=== PATIENT | female | born 1955 | race Caucasian/White ===

== ENCOUNTER → 2016-09-28 | Outpatient (CLI) | payer MEDICARE, MEDICAID ==
[~2016-09-28] MED LIST: ASA CHILDREN'S81 MG PO; ASPIR 8181 MG PO; AUGMENTIN 500-1 EACH PO; BACTROBAN OINT.22 GM TP; BICARSIM80 MG PO; BUPROPION XL300 MG PO; CARAFATE DPS1 GM PO; CEFDINIR300 MG PO; CELEXA40 M1 PO; CELEXA40 MG PO; COUMADIN5 MG PO; DELTASONE DPS10 MG PO; DESYREL-DPS50 MG PO; DUONEB DPS3 ML IH; FLEXERIL DPS5 MG PO; GLUCAGON HCL1 MG IM; GLUTOSE 1537.5 GM PO; GUAIFEN-CODEIN473 ML PO; HUMALOG100 UNIT/1 SQ; HUMALOG100 UNIT/3 SQ; HYDROCODON-ACE1 EAC4 PO; IMODIUM DPS2 MG PO; LANTUS100 UNITS/ SQ; LASIX DPS20 MG PO; LASIX20 M1 PO; LEVEMIR FL100 UNIT/1 SQ; LEVEMIR100 UNIT/1 SQ; LIPITOR DPS40 MG PO; LIPITOR40 MG PO; LOPRESSOR I5 MG/5 ML IV; LOVENOX DP60 MG/0.6 SQ; LYRICA100 MG PO; LYRICA150 MG PO; LYRICA300 MG PO; MAALOX DPS30 ML PO; MYLICON DPS80 MG PO; NITROSTAT0.4 MG SL; NOVOLIN R100 UNIT/1 IV; NOVOLOG100 UNIT/2 SQ; OYSTER SHELL C500 MG PO; PRILOSEC DPS20 MG PO; PRILOSEC20 MG PO; PROTONIX40 MG PO; REGLAN DPS5 MG PO; REGLAN10 MG IV; RESTASIS1 EACH OU; SURFAK DPS240 MG PO; TEARS NATURAL D15 ML OU; TESSALON PERLE100 MG PO; TYLENOL DPS325 MG PO; WELLBUTRIN XL150 MG PO; WELLBUTRIN XL300 MG PO; XANAX DPS0.25 MG PO; ZEBETA5 MG PO; ZIAC 55 MG PO; ZOFRAN DPS4 MG/2 ML IV; [UNRECOGNIZED DRUG - OTHER] PO
== END | disposition home or self-care (01) ==
LOC: RAD.S 13:45
DX: I73.9 Peripheral vascular disease, unspecified (principal)

== ENCOUNTER 2016-10-04 17:21 | Inpatient (IN) | payer MEDICARE, MEDICAID ==
[~2016-10-04] VITALS: Ht 147.3 cm; Wt 59.7 kg
[~2016-10-04 17:21] MED LIST changes: -AUGMENTIN 500-1 EACH PO; -CARAFATE DPS1 GM PO; -CEFDINIR300 MG PO; -DELTASONE DPS10 MG PO; -DUONEB DPS3 ML IH; -GLUCAGON HCL1 MG IM; -GUAIFEN-CODEIN473 ML PO; -HYDROCODON-ACE1 EAC4 PO; -LOPRESSOR I5 MG/5 ML IV; -LOVENOX DP60 MG/0.6 SQ; -LYRICA150 MG PO; -MYLICON DPS80 MG PO; -NITROSTAT0.4 MG SL; -NOVOLIN R100 UNIT/1 IV; -OYSTER SHELL C500 MG PO; -REGLAN DPS5 MG PO; -REGLAN10 MG IV; -RESTASIS1 EACH OU; -TESSALON PERLE100 MG PO; -XANAX DPS0.25 MG PO; -ZOFRAN DPS4 MG/2 ML IV
--- NOTE | 2016-10-05 15:40 | ER ---
ADMIT: 10/04/2016 RM/LOC: 424 [facility] MR#: [id number] [address] [address] CURLY HAYLIE [place] [address] Emergency Room Report SEX: F AGE: 61 : 1955 DATE: 10/04/2016 ADDENDUM: This is a 61-year-old white female, who has tracheostomy from previous problems, coming in coughing and spasming. She does not have any humidified air at home. Her chest was negative. She has no fever at this time. Still continues to bother her. We did give her a racemic epi treatment. We also put her on humidified air. Still a little anxious with this. Also, this is making her a little nauseated. We gave her 4 of Zofran and then I had also had given her Xanax 0.25 sublingual. We are just going to watch her overnight. She has no setup at home that would help humidify her trach. This way we can watch her. I spoke with Dr. Phillips, who is covering for Dr. Bernard. They will observe her. We did check her blood sugar, it was like 247. She is a diabetic, but that does not seem to be the problem. CONDITION ON DISCHARGE: Good. John Saab MD/ hernestol JOB #: [id number] CC: Jeffy Bernard MD, Attending Physician Jeffy Bernard MD, Family Physician
--- NOTE | 2016-10-06 08:34 | HP ---
ADMIT: 10/05/2016 RM/LOC: 424 [facility] MR#: [id number] [address] [address] HAYLIE RAWLS Neymar [address] [place] [address] History and Physical SEX: F AGE: 61 : 1955 DATE OF SERVICE: CHIEF COMPLAINT: Cough, weakness, and nausea. HISTORY OF PRESENT ILLNESS: The patient is a pleasant 61-year-old female, very well known to me who had been in her usual state of health up until the last few days. Increasing cough. Shortness of breath. Fits of coughing that are severe. No known sick contacts. Lots of nausea. Decreased oral intake. Increased weakness. No chest pain. Has struggled with some right leg pain recently, found to have worsening peripheral vascular disease on ABIs recently. Otherwise, had been living at home. No severe hypoglycemic reactions recently, she states. No chest pain currently. Just feels very weak. Coughing a lot. No fevers per se. PAST MEDICAL HISTORY: 1. 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 2. Prior right tibial fracture. 3. Poorly controlled type 1 diabetes, on insulin. 4. Nonobstructive coronary artery disease. 5. Severe peripheral vascular disease, status post femoral-popliteal bypass. 6. History of SVT. 7. History of upper extremity DVT. 8. History of cervical neck fusion. 9. COPD. 10.Depression. 11.Hypertension. 12.Hyperlipidemia. 13.History of urinary retention. FAMILY HISTORY: Notable for pancreatic and colon cancer. SOCIAL HISTORY: Lives at home alone. Nonsmoker. . MEDICATIONS: Please see list for full details. She is on: 1. Trazodone. 2. Stool softener. 3. Calcium. 4. Omeprazole. 5. Lyrica. 6. Citalopram. 7. Bupropion. 8. Aspirin. 9. Lasix. 10.Levemir. 11.Humalog. 12.Bisoprolol. REVIEW OF SYSTEMS: As per HPI. Otherwise, completely reviewed and negative. ADMIT: 10/05/2016 RM/LOC: 424 [facility] MR#: [id number] [address] [address] HAYLIE RAWLS [address] [place] [address] History and Physical SEX: F AGE: 61 : 1955 PHYSICAL EXAMINATION: VITAL SIGNS: Temperature 98.6, pulse 91, respiratory rate 16, blood pressure 110/59, O2 saturation 90% on oxygen. GENERAL: She is alert and oriented x3. No acute distress. Appears much more tired than usual. HEENT: Normocephalic, atraumatic. Pupils equal, round, and reactive to light and accommodation. Extraocular muscles intact. Very dry mucous membranes. NECK: Trachea midline. No surrounding erythema. LUNGS: Clear to auscultation bilaterally with some end-expiratory stridorous type sounding. Upper airway sounding. Symmetric thoracic excursion. HEART: Regular rate and rhythm. No murmurs, rubs, or gallops. ABDOMEN: Soft, nondistended, and nontender. Bowel sounds present. EXTREMITIES: No cyanosis, clubbing, or edema. MUSCULOSKELETAL: 5/5 strength in all 4 extremities. NEUROLOGICAL: No focal deficits noted. Cranial nerves II through XII grossly intact. SKIN: No rashes noted. Dry. Poor skin turgor. LABORATORY DATA: Blood glucose 326 earlier this morning, 15 earlier on her BMP at 4 a.m. Creatinine 1.3, the baseline less than 1. Hemoglobin 14.4, potassium 3.9, procalcitonin 0.06. Chest x-ray reviewed. I do not see any acute infiltrates. EKG I reviewed. No acute findings, junctional rhythm, left bundle branch block. ASSESSMENT: 1. Tracheitis. 2. Peripheral vascular disease. 3. Acute kidney injury. 4. Coronary artery disease. 5. Diabetes type 1, poorly controlled on insulin. 6. Hypertension. PLAN: At this point in time, she had a tracheitis in the past, really struggled to get better in the past. We will keep her inpatient, give her low- dose steroid. Give her some humidified oxygen. Check respiratory viral panel. Check for influenza. Get her hydrated back up. Diabetes has been difficult to control and being on prednisone might make it more difficult. I think she definitely warrants inpatient given her comorbidities, fits of coughing, and overall acute kidney injury. We will try to get her better here. The patient is agreeable to plan. Jeffy Bernard MD/ dilan JOB #: [id number] CC: Jeffy Bernard, Attending Physician ADMIT: 10/05/2016 RM/LOC: 424 [facility] MR#: [id number] [address] [place] [address] [address] RAWLS [address] [address] History and Physical SEX: F AGE: 61 : 1955 Jeffy Bernard, Family Physician
[2016-10-08] MEDS ORDERED: DESYREL-DPS50 MG PO (11:36)
[2016-10-08] MEDS ORDERED: OYSTER SHELL C500 MG PO (11:36)
[2016-10-08] MEDS ORDERED: DELTASONE DPS10 MG PO (11:38)
[2016-10-08] MEDS ORDERED: PROTONIX40 MG PO (11:38)
[2016-10-08] MEDS ORDERED: ASA CHILDREN'S81 MG PO (11:39)
[2016-10-08] MEDS ORDERED: LASIX DPS20 MG PO (11:39)
[2016-10-08] MEDS ORDERED: CARAFATE DPS1 GM PO (11:42)
[2016-10-08] MEDS ORDERED: DUONEB DPS3 ML IH (11:42)
[2016-10-08] MEDS ORDERED: BACTROBAN OINT.22 GM TP (11:43)
[2016-10-08] MEDS ORDERED: TESSALON PERLE100 MG PO (11:43)
[2016-10-08] MEDS ORDERED: HYDROCODON-ACE1 EAC4 PO (11:44)
[2016-10-08] MEDS ORDERED: MYLICON DPS80 MG PO (11:44)
[2016-10-08] MEDS ORDERED: GUAIFEN-CODEIN473 ML PO (11:46)
[2016-10-13] MEDS ORDERED: RESTASIS1 EACH OU (11:51)
[2016-10-13] MEDS ORDERED: REGLAN DPS5 MG PO (11:51)
[2016-10-13] MEDS ORDERED: LYRICA150 MG PO (11:51)
[2016-10-13] MEDS ORDERED: XANAX DPS0.25 MG PO (11:55)
[2016-10-13] MEDS ORDERED: CEFDINIR300 MG PO (12:00)
--- NOTE | 2016-10-19 08:17 | DS ---
ADMIT: 10/05/2016 RM/LOC: 424 [facility] MR#: [id number] [address] [address] CURLYZAC [place] [address] General Discharge Summary SEX: F AGE: 61 : 1955 ADMISSION DATE: 10/05/2016 DISCHARGE DATE: 10/07/2016 ATTENDING AT TIME OF DISCHARGE: Jeffy Bernard MD CONSULTATIONS: None. PROCEDURES: None. FINAL DIAGNOSES: 1. Tracheitis. 2. Peripheral vascular disease. 3. Type 1 diabetes with erratic glucose control. 4. Hypertension. 5. Coronary artery disease. 6. Acute kidney injury. 7. Depression. REASON FOR ADMISSION: The patient is a 61-year-old female, who presented to the emergency room with increasing cough, shortness of breath, did not feel well, wheezing, copious sputum production. Admitted for further stabilization. HOSPITAL COURSE: The patient was admitted. She required humidified air via trach. Slowly and steadily improved. Steroids. Still had large amount of copious secretions and cough, severe. Ultimately improved to the point she felt like she could go home with home health care. She was hydrated, apparent acute kidney injury resolved. Did not have a fever. Did not require antibiotics. Blood sugars were monitored while being on steroids under reasonable control. DISCHARGE INSTRUCTIONS: She will be discharged to home. Home health care. Blow-by humidified oxygen via trach. Suction set up at home. She will see me back in clinic in short order. For medications please see discharge MAR, which I fully reviewed. Jeffy Bernard MD/ turner JOB #: [id number] CC: Jeffy Bernard MD, Attending Physician Jeffy Bernard MD, Family Physician
[2016-12-08] MEDS ORDERED: GLUCAGON HCL1 MG IM (15:21)
[2016-12-08] MEDS ORDERED: DESYREL-DPS50 MG PO (15:21)
[2017-02-20] MEDS ORDERED: XANAX DPS0.25 MG PO (09:25)
[2017-02-20] MEDS ORDERED: LASIX DPS20 MG PO (09:26)
[2017-02-20] MEDS ORDERED: PRILOSEC DPS20 MG PO (09:26)
[2017-02-20] MEDS ORDERED: AUGMENTIN 500-1 EACH PO (09:27)
[2017-04-06] MEDS ORDERED: LOVENOX DP60 MG/0.6 SQ (13:28)
[2017-04-06] MEDS ORDERED: NOVOLIN R100 UNIT/1 IV (13:34)
[2017-04-06] MEDS ORDERED: LOPRESSOR I5 MG/5 ML IV (13:34)
[2017-04-06] MEDS ORDERED: TYLENOL DPS325 MG PO (13:35)
[2017-04-06] MEDS ORDERED: GLUTOSE 1537.5 GM PO (13:35)
[2017-04-06] MEDS ORDERED: GLUCAGON HCL1 MG IM (13:36)
[2017-04-06] MEDS ORDERED: NITROSTAT0.4 MG SL (14:18)
[2017-04-06] MEDS ORDERED: ZOFRAN DPS4 MG/2 ML IV (14:20)
[2017-04-06] MEDS ORDERED: REGLAN10 MG IV (14:20)
== END 2016-10-07 14:15 | disposition home health service (06) | DRG 206 ==
LOC: ER 17:21 → 4PCU 19:00
PROVIDERS: ADMIT Internal Medicine
DX: J95.02 Infection of tracheostomy stoma (principal); N17.9 Acute kidney failure, unspecified; E10.51 Type 1 diabetes mellitus with diabetic peripheral angiopathy without gangrene; E10.65 Type 1 diabetes mellitus with hyperglycemia; J04.10 Acute tracheitis without obstruction; I25.10 Atherosclerotic heart disease of native coronary artery without angina pectoris; J44.9 Chronic obstructive pulmonary disease, unspecified; F32.9 Major depressive disorder, single episode, unspecified; I10 Essential (primary) hypertension; E78.5 Hyperlipidemia, unspecified; Z79.82 Long term (current) use of aspirin; Z86.718 Personal history of other venous thrombosis and embolism; Z98.1 Arthrodesis status

== ENCOUNTER 2016-10-08 11:39 | Inpatient (IN) | payer MEDICARE, MEDICAID ==
[~2016-10-08] VITALS: Ht 147.3 cm; Wt 58.0 kg
[~2016-10-08 11:39] MED LIST changes: +DELTASONE DPS10 MG PO; +OYSTER SHELL C500 MG PO
[2016-10-08] MEDS ORDERED: DUONEB DPS3 ML IH (11:42)
[2016-10-08] MEDS ORDERED: CARAFATE DPS1 GM PO (11:42)
[2016-10-08] MEDS ORDERED: TESSALON PERLE100 MG PO (11:43)
[2016-10-08] MEDS ORDERED: BACTROBAN OINT.22 GM TP (11:43)
[2016-10-08] MEDS ORDERED: MYLICON DPS80 MG PO (11:44)
[2016-10-08] MEDS ORDERED: HYDROCODON-ACE1 EAC4 PO (11:44)
[2016-10-08] MEDS ORDERED: GUAIFEN-CODEIN473 ML PO (11:46)
--- NOTE | 2016-10-09 10:47 | HP ---
ADMIT: 10/08/2016 RM/LOC: 425 [facility] MR#: [id number] [address] [address] HAYLIE RAWLS [place], [place] [address] History and Physical SEX: F AGE: 61 : 1955 DATE OF SERVICE: CHIEF COMPLAINT: Cough and shortness of breath. HISTORY OF PRESENT ILLNESS: Ms. Rawls is a very pleasant, 61-year-old female. She was actually just discharged from the hospital yesterday. She had been admitted on 10/05 with diagnosis of tracheitis. She had been given some IV steroids as well as antibiotics. The patient reports that she had not made a lot of improvement but the decision was for her to be discharged home. She went home and her son picked her up and reports that she did not look very well when he picked her up. Notes that after being home today, the home health nurse came to see her and was really concerned that she was unable to care for herself. Notes that she was unable to suction herself, did not have a home suctioning unit; also reports that she did not have humidity, therefore, they felt that the patient was too weak to stay at home and it was unsafe. They had attempted skilled placement through the ER but were unsuccessful. The patient currently reports that she is short of breath. She is having mucus which is unusual for her, reports that she has not had an appetite, she has been somewhat nauseated. PAST MEDICAL HISTORY: Significant for: 1. Tracheostomy-dependent secondary to prior respiratory insufficiency. 2. History of right tibial fracture. 3. Poorly-controlled diabetes mellitus type 1, on insulin. 4. Nonobstructive coronary artery disease. 5. Severe peripheral vascular disease, status post femoral-popliteal bypass. 6. History of SVT. 7. History of upper extremity DVT. 8. History of cervical neck fusion. 9. COPD. 10.Depression. 11.Hypertension. 12.Hyperlipidemia. 13.History of urinary retention. MEDICATIONS: Currently are: 1. Calcium 600 mg p.o. at bedtime. 2. Omeprazole 20 mg p.o. b.i.d. 3. Trazodone 50 mg p.o. at bedtime. 4. Citalopram 40 mg p.o. daily. 5. Bupropion 300 mg p.o. daily. 6. Prednisone taper on 10 mg p.o. daily. 7. Aspirin 81 mg p.o. daily. 8. Lasix 20 mg p.o. daily. 9. Levemir 10 units subcutaneously at bedtime. 10.Humalog 6 units with meals and 1 unit for every 50 above 150. 11.Lipitor 40 mg p.o. daily. 12.DuoNeb q.i.d. 13.Sucralfate 1 g q.i.d. ADMIT: 10/08/2016 RM/LOC: 425 [facility] MR#: [id number] [address] [place] [address] [place] [address] History and Physical SEX: F AGE: 61 : 1955 14.Bisoprolol 5 mg p.o. daily. 15.Tessalon Perles 100 mg p.o. t.i.d. 16.Hydrocodone. 17.Simethicone. 18.Robitussin with codeine. 19.Tylenol. 20.Lyrica 300 mg p.o. b.i.d. 21.Restasis. 22.Alprazolam as needed as well as an antibiotics. FAMILY HISTORY: Notable for pancreatic and colon cancer. SOCIAL HISTORY: She lives at home. Does not smoke, is a nonsmoker. She is , has a son who is very involved in her care. REVIEW OF SYSTEMS: Obtained, was otherwise essentially negative. PHYSICAL EXAMINATION: GENERAL: She is alert and oriented. She is in no apparent distress. Her trachea is clean, dry, and intact. HEENT: Her pupils are round and reactive. Oropharynx has dry mucous membranes. HEART: Normal rate with a regular rhythm. LUNGS: Diminished breath sounds bilaterally with some bronchial upper airway sounds. ABDOMEN: Soft. Bowel sounds are present. EXTREMITIES: No lower extremity edema. She appears to be pale. She also has diminished distal pulses. ASSESSMENT AND PLAN: 1. Cough with increased mucus production and dyspnea, at this time, ADMIT: 10/08/2016 RM/LOC: 425 [facility] MR#: [id number] [address] [place] [id number] [place] [address] History and Physical SEX: F AGE: 61 : 1955 certainly warrants admission. I feel that she needs to be on IV antibiotics. Continue her p.o. steroids. We will not give her IV steroids with the concern of her blood sugars. We will plan to get a sputum Gram-stain and culture. She had a recent respiratory panel. 2. Weakness. We will ask PT/OT to see the patient. We will plan to look for skilled placement. 3. Hypertension. 4. Hyperlipidemia. 5. History of supraventricular tachycardia. 6. History of peripheral vascular disease. 7. Diabetes mellitus type 1. Overall, I spent 40 minutes in the admission and evaluation of this patient. Cynthia Griffin MD/ dilan JOB #: [id number] CC: Jeffy Bernard, Attending Physician Jeffy Bernard, Family Physician
--- NOTE | 2016-10-13 10:00 | ER ---
ADMIT: 10/08/2016 RM/LOC: ER [facility] MR#: [id number] [address] [address] HAYLIE RAWLS Neymar [address] [place] [address] Emergency Room Report SEX: F AGE: 61 : 1955 DATE: 10/08/2016 ADDENDUM: A 61-year-old white female coming in with kind of recurrent tracheitis who was just recently admitted and then discharged home with Home Health Care. Home Health Care says she is unable to take care of herself and was sent here. The patient wanted to be admitted, but she did not meet any 3- day diagnosis qualification to make fpc. Certification Technician were called. I spoke with Dr. Griffin. At this time, the patient evidently lives by herself, cannot manage her trach or her medications, oxygen at home. She will be admitted as observation here. CONDITION ON DISCHARGE: Fair. John Saab MD/ dilan JOB #: [id number] CC: John Saab MD, Attending Physician UNKNOWN, Family Physician
[2016-10-13] MEDS ORDERED: REGLAN DPS5 MG PO (11:51)
[2016-10-13] MEDS ORDERED: RESTASIS1 EACH OU (11:51)
[2016-10-13] MEDS ORDERED: LYRICA150 MG PO (11:51)
[2016-10-13] MEDS ORDERED: XANAX DPS0.25 MG PO (11:55)
[2016-10-13] MEDS ORDERED: CEFDINIR300 MG PO (12:00)
--- NOTE | 2016-10-20 11:58 | DS ---
ADMIT: 10/08/2016 RM/LOC: 425 [facility] MR#: [id number] [address] [address] HAYLIE RAWLS Neymar [place], [place] [id number] Discharge Summary SEX: F AGE: 61 : 1955 ADMISSION DATE: 10/08/2016 DISCHARGE DATE: 10/12/2016 DISCHARGE DIAGNOSES: 1. Dyspnea. 2. Weakness. 3. Tracheitis. 4. Labile diabetes mellitus. 5. History of nonobstructive coronary artery disease. 6. History of peripheral vascular disease. 7. History of SVT (supraventricular tachycardia). 8. History of upper extremity DVT (deep venous thrombosis). 9. History of cervical neck fusion. 10.Hypertension. 11.Hyperlipidemia. 12.Depression. 13.COPD (chronic obstructive pulmonary disease). HOSPITAL COURSE: The patient was admitted from home as she was too weak to care for herself at home. We had Social Work involved. I did feel that she warranted IV antibiotics for her tracheitis. She had a cough productive of phlegm. She was placed on IV antibiotics. She was also on p.o. steroids. Her blood sugars were watched closely. Otherwise, she did pretty well during her hospital stay. She was having some low blood sugars but otherwise her insulin was tapered back. The plan was for her to be discharged to [facility] for further skilled evaluation and treatment. DISCHARGE MEDICATIONS: 1. Calcium 500 mg p.o. at bedtime. 2. Omeprazole 20 mg p.o. b.i.d. 3. Trazodone 50 mg p.o. at bedtime. 4. Celexa 40 mg p.o. daily. 5. Bupropion 300 mg p.o. daily. 6. Prednisone 10 mg p.o. daily. 7. Aspirin 81 mg p.o. daily. 8. Lasix 20 mg p.o. daily. 9. Levemir 8 units subcu HS with Humalog 4 units AC and a very low-dose sliding scale Humalog. 10.Atorvastatin 40 mg p.o. at bedtime. 11.DuoNebs q.i.d. ADMIT: 10/08/2016 RM/LOC: 425 [facility] MR#: [id number] [id number] [facility] [address] [place], [place] [address] HAYLIE RAWLS [address] [place] [address] Discharge Summary SEX: F AGE: 61 : 1955 12.Carafate 1 g q.a.c. 13.Bisoprolol 5 mg p.o. daily. 14.Tessalon 100 mg p.o. t.i.d. x10 days then p.r.n. 15.Pain pill p.r.n. 16.Simethicone, Robitussin p.r.n. 17.Tylenol p.r.n. Lyrica 300 mg p.o. b.i.d. 18.Restasis b.i.d. 19.Xanax daily p.r.n. 20.Cefdinir 300 mg p.o. b.i.d. x10 days. She will follow up with Dr. Bernard in 10 days, have Accu-Cheks AC and HS. O2 to keep sats greater than 90, has heated humidity through her trach. PT/OT, Speech Therapy to evaluate and treat. Cynthia Griffin MD/ ashtyn JOB #: [id number] CC: Jeffy Bernard MD, Attending Physician Jeffy Bernard MD, Family Physician
[2016-12-08] MEDS ORDERED: DESYREL-DPS50 MG PO (15:21)
[2016-12-08] MEDS ORDERED: GLUCAGON HCL1 MG IM (15:21)
[2017-02-20] MEDS ORDERED: XANAX DPS0.25 MG PO (09:25)
[2017-02-20] MEDS ORDERED: LASIX DPS20 MG PO (09:26)
[2017-02-20] MEDS ORDERED: PRILOSEC DPS20 MG PO (09:26)
[2017-02-20] MEDS ORDERED: AUGMENTIN 500-1 EACH PO (09:27)
[2017-04-06] MEDS ORDERED: LOVENOX DP60 MG/0.6 SQ (13:28)
[2017-04-06] MEDS ORDERED: LOPRESSOR I5 MG/5 ML IV (13:34)
[2017-04-06] MEDS ORDERED: NOVOLIN R100 UNIT/1 IV (13:34)
[2017-04-06] MEDS ORDERED: TYLENOL DPS325 MG PO (13:35)
[2017-04-06] MEDS ORDERED: GLUTOSE 1537.5 GM PO (13:35)
[2017-04-06] MEDS ORDERED: GLUCAGON HCL1 MG IM (13:36)
[2017-04-06] MEDS ORDERED: NITROSTAT0.4 MG SL (14:18)
[2017-04-06] MEDS ORDERED: ZOFRAN DPS4 MG/2 ML IV (14:20)
[2017-04-06] MEDS ORDERED: REGLAN10 MG IV (14:20)
== END 2016-10-12 12:03 | DRG 206 ==
LOC: ER 11:39 → 4PCU 14:25
PROVIDERS: ADMIT Internal Medicine
DX: J95.02 Infection of tracheostomy stoma (principal); N17.9 Acute kidney failure, unspecified; E10.51 Type 1 diabetes mellitus with diabetic peripheral angiopathy without gangrene; E10.65 Type 1 diabetes mellitus with hyperglycemia; J04.10 Acute tracheitis without obstruction; I25.10 Atherosclerotic heart disease of native coronary artery without angina pectoris; E87.6 Hypokalemia; J44.9 Chronic obstructive pulmonary disease, unspecified; F32.9 Major depressive disorder, single episode, unspecified; I10 Essential (primary) hypertension; E78.5 Hyperlipidemia, unspecified; Z79.82 Long term (current) use of aspirin; Z79.52 Long term (current) use of systemic steroids; Z86.718 Personal history of other venous thrombosis and embolism; Z98.1 Arthrodesis status

== ENCOUNTER 2016-11-06 14:59 | Inpatient (IN) | payer MEDICARE, MEDICAID ==
[~2016-11-06] VITALS: Ht 147.3 cm; Wt 56.5 kg
[~2016-11-06 14:59] MED LIST changes: +CARAFATE DPS1 GM PO; +CEFDINIR300 MG PO; +DUONEB DPS3 ML IH; +GUAIFEN-CODEIN473 ML PO; +HYDROCODON-ACE1 EAC4 PO; +LYRICA150 MG PO; +MYLICON DPS80 MG PO; +REGLAN DPS5 MG PO; +RESTASIS1 EACH OU; +TESSALON PERLE100 MG PO; +XANAX DPS0.25 MG PO
--- NOTE | 2016-11-10 08:28 | HP ---
ADMIT: 11/06/2016 RM/LOC: 512 [facility] MR#: [id number] [address] [address] HAYLIE JACKMAN [address] [place] [id number] History and Physical SEX: F AGE: 61 : 1955 DATE OF SERVICE: CHIEF COMPLAINT: Decreased LOC. HISTORY OF PRESENT ILLNESS: Ms. Jackman is a 61-year-old female, who has a past medical history significant for history of poorly controlled diabetes with recurrent hospitalizations for poorly controlled diabetes, COPD, depression, history of tracheostomy secondary to prior respiratory insufficiency, and nonobstructive coronary artery disease, who apparently fell on 11/03 and suffered a right humerus fracture. She apparently then was given some pain pills from the ER and sent home. She was brought in today by her son, who reports that she was having a decreased level of consciousness. Son is not currently available, and the patient is in the room. She wakes up and talks to me, but she falls right back asleep and is really a poor historian. Otherwise, it sounded like she was having some high blood sugars at home and maybe was not taking her medications quite as directed. PAST MEDICAL HISTORY: Significant for: 1. History of tracheostomy dependency secondary to prior respiratory insufficiency. 2. History of right tibial fracture. 3. Recent right proximal humerus fracture. 4. Poorly-controlled diabetes mellitus type 1. 5. Nonobstructive coronary artery disease. 6. Severe peripheral vascular disease status post femoral-popliteal bypass. 7. History of SVT. 8. History of upper extremity DVT. 9. History of cervical neck fusion. 10.COPD. 11.Depression. 12.Hypertension. 13.Hyperlipidemia. 14.History of urinary retention. MEDICATIONS: Her medications currently are: 1. Omeprazole 20 mg p.o. b.i.d. 2. Simethicone 80 mg p.o. q.4 hours p.r.n. 3. Carafate 1 g p.o. four times daily before meals. 4. Celexa 40 mg p.o. daily. 5. Bupropion 300 mg p.o. daily. 6. Lasix 20 mg p.o. daily. 7. Atorvastatin 40 mg p.o. daily. 8. Trazodone 50 mg p.o. at bedtime. 9. Bisoprolol 5 mg p.o. daily. 10.Lyrica 300 mg p.o. b.i.d. 11.Xanax 0.25 p.o. daily p.r.n. 12.Aspirin 81 mg p.o. daily. 13.Calcium 500 mg p.o. at bedtime. 14.Docusate sodium. ADMIT: 11/06/2016 RM/LOC: 512 [facility] MR#: [id number] [address] [address] [place] [address] History and Physical SEX: F AGE: 61 : 1955 15.Grant p.r.n. 16.Oxycodone p.r.n. 17.DuoNeb 4 times daily. 18.Restasis. 19.Levemir 8 units at bedtime. 20.Humalog 4 units before meals. FAMILY HISTORY: Notable for pancreatic and colon cancer. SOCIAL HISTORY: She lives at home. Does not smoke. She is . Her son who is involved in her care. REVIEW OF SYSTEMS: Otherwise obtained, was essentially negative. PHYSICAL EXAMINATION: GENERAL: She is sleepy, but she does wake up. HEENT: Pupils are round and reactive. She has ecchymoses under her left eye. Oropharynx has dry mucous membranes. NECK: Supple. She does have a tracheostomy. HEART: Normal rate with a regular rhythm. LUNGS: Have some coarse upper airway sounds. ABDOMEN: Soft. EXTREMITIES: Have no evidence of edema. Her right upper extremity is bruised, swollen, and in a splint. SKIN: Warm and dry. NEUROLOGICAL: She moves her upper and lower extremities. ASSESSMENT AND PLAN: 1. Decreased level of consciousness. Suspect this is secondary to her pain medications at this time. We will go ahead and just monitor. 2. Hyperglycemia. We will treat. 3. Acute renal failure. Suspect she has just not been taking much p.o. with the pain pills. We will go ahead and increase her IV fluids. 4. Humerus fracture. We will control her pain. 5. We will plan to discuss having PT/OT see her in the morning potentially having Social Work come and talk to her about placement otherwise. 6. Coronary artery disease. 7. Peripheral vascular disease. 8. Other chronic health problems. We will continue her home medications. Otherwise, I spent over 40 minutes in the admission and evaluation of this patient. Cynthia Griffin MD/ dilan JOB #: [id number] CC: Michael Franco, Attending Physician ADMIT: 11/06/2016 RM/LOC: 512 [facility] MR#: [id number] [facility] [address] [address] [place] [address] History and Physical SEX: F AGE: 61 : 1955 Jeffy Bernard, Family Physician
--- NOTE | 2016-11-10 14:03 | CO ---
ADMIT: 11/06/2016 RM/LOC: 512 [facility] MR#: [id number] [address] [address] [place] [address] Consultation SEX: F AGE: 61 : 1955 DATE OF CONSULTATION: 11/07/2016 ATTENDING PHYSICIAN: Michael Franco CONSULTING PHYSICIAN: Stoney Orourke MD SUBJECTIVE: The patient is a 61-year-old white female, who has been admitted to the hospital today for loss of consciousness. She has a history of multiple medical problems. Apparently, on November 03, she took a fall, sustained an upper extremity fractures, was placed a shoulder immobilizer in the ER, was going to, I believe, follow up with Orthopedics. I was asked to take a look at her during this admission. PHYSICAL EXAMINATION: Shows the patient has some ecchymosis in her shoulder and axillary area, tender to palpation. LABORATORY AND X-RAY DATA: I reviewed the x-rays from November 03, which show a minimally displaced proximal humerus fracture. ASSESSMENT AND PLAN: Minimally displaced proximal humerus fracture. At this point in time, the best thing to do is treat this nonoperatively. Given her multiple medical problems, have her stay in the immobilizer and follow her up in a week for repeat x-rays on outpatient basis. Stoney Orourke MD/ dilan JOB #: [id number] CC: Michael Franco, Attending Physician Jeffy Bernard, Family Physician
--- NOTE | 2016-11-13 11:01 | ER ---
ADMIT: 11/06/2016 RM/LOC: 512 [facility] MR#: [id number] [address] [address] CURLYHAYLIE RAE [address] [place] [address] Emergency Room Report SEX: F AGE: 61 : 1955 DATE: 11/06/2016 ADDENDUM: A 61-year-old white female, is brittle diabetic, coming in with elevated blood sugar, spilling of ketones. She is not septic. She is spilling glucose through in her urine. She did have a bump of her troponin 0.62, but her EKG looked okay. She also recently had a fracture of her humerus, has been falling more. The pain medication may be making her a little bit unstable on her feet. Either which way, we are going to admit her. I spoke with Dr. Griffin. CONDITION ON DISCHARGE: Serious, but stable. John Saab MD/ hernestol JOB #: [id number] CC: Michael Franco MD, Attending Physician Jeffy Bernard MD, Family Physician
--- NOTE | 2016-11-14 23:33 | DS ---
ADMIT: 11/07/2016 RM/LOC: 512 [facility] MR#: [id number] [address] [address] CURLYZAC SanchezTER Neymar [address] [place] [address] Discharge Summary SEX: F AGE: 61 : 1955 ADMISSION DATE: 11/07/2016 DISCHARGE DATE: 11/09/2016 CONSULTATIONS: Orthopedic Surgery. FINAL DIAGNOSES: 1. Fall with humerus fracture. 2. Decreased level of consciousness. 3. Poorly controlled type 1 diabetes. 4. Acute renal failure. 5. Coronary artery disease. 6. Peripheral vascular disease. 7. Tracheostomy dependence. REASON FOR ADMISSION: The patient is a chronically ill woman who presented to the emergency room with decreased level of consciousness. Recent fracture of her humerus. HOSPITAL COURSE: The patient was admitted. She had acute kidney injury. Rehydrated. This improved. Her blood sugars were closely monitored. These were improved as well. She was seen by Orthopedic Surgery regarding her humerus fracture. She was a nonoperative candidate. Conservative care. She was seen by Therapy. Ultimately, plans were made for nursing home placement. DISCHARGE INSTRUCTIONS: Please see discharge MAR, which I fully reviewed. She will see me back in clinic in a week or two. Have followup with Orthopedic surgery as planned. Jeffy Bernard MD/ ashtyn JOB #: [id number] CC: Michael Franco MD, Attending Physician Jeffy Bernard MD, Family Physician
[2016-12-08] MEDS ORDERED: DESYREL-DPS50 MG PO (15:21)
[2016-12-08] MEDS ORDERED: GLUCAGON HCL1 MG IM (15:21)
[2017-02-20] MEDS ORDERED: XANAX DPS0.25 MG PO (09:25)
[2017-02-20] MEDS ORDERED: LASIX DPS20 MG PO (09:26)
[2017-02-20] MEDS ORDERED: PRILOSEC DPS20 MG PO (09:26)
[2017-02-20] MEDS ORDERED: AUGMENTIN 500-1 EACH PO (09:27)
[2017-04-06] MEDS ORDERED: LOVENOX DP60 MG/0.6 SQ (13:28)
[2017-04-06] MEDS ORDERED: LOPRESSOR I5 MG/5 ML IV (13:34)
[2017-04-06] MEDS ORDERED: NOVOLIN R100 UNIT/1 IV (13:34)
[2017-04-06] MEDS ORDERED: GLUTOSE 1537.5 GM PO (13:35)
[2017-04-06] MEDS ORDERED: TYLENOL DPS325 MG PO (13:35)
[2017-04-06] MEDS ORDERED: GLUCAGON HCL1 MG IM (13:36)
[2017-04-06] MEDS ORDERED: NITROSTAT0.4 MG SL (14:18)
[2017-04-06] MEDS ORDERED: ZOFRAN DPS4 MG/2 ML IV (14:20)
[2017-04-06] MEDS ORDERED: REGLAN10 MG IV (14:20)
== END 2016-11-09 12:20 | DRG 683 ==
LOC: ER 14:59 → 5MS 17:21
PROVIDERS: ADMIT Internal Medicine
DX: N17.9 Acute kidney failure, unspecified (principal); S42.201A Unspecified fracture of upper end of right humerus, initial encounter for closed fracture; E10.51 Type 1 diabetes mellitus with diabetic peripheral angiopathy without gangrene; Z93.0 Tracheostomy status; E10.65 Type 1 diabetes mellitus with hyperglycemia; W18.30XA Fall on same level, unspecified, initial encounter; R40.0 Somnolence; T40.605A Adverse effect of unspecified narcotics, initial encounter; J44.9 Chronic obstructive pulmonary disease, unspecified; F32.9 Major depressive disorder, single episode, unspecified; I25.10 Atherosclerotic heart disease of native coronary artery without angina pectoris; E78.5 Hyperlipidemia, unspecified; I10 Essential (primary) hypertension; Z86.718 Personal history of other venous thrombosis and embolism; Z98.1 Arthrodesis status; Z79.82 Long term (current) use of aspirin

== ENCOUNTER 2016-12-05 03:10 | Inpatient (IN) | payer MEDICARE, MEDICAID ==
[~2016-12-05] VITALS: Ht 147.3 cm; Wt 58.0 kg
--- NOTE | ~2016-12-05 | HP ---
ADMIT: 12/05/2016 RM/LOC: 405 [facility] MR#: [id number] [address] [address] [place] [address] History and Physical SEX: F AGE: 61 : 1955 DATE OF SERVICE: CHIEF COMPLAINT: Nausea, vomiting, weakness. HISTORY OF PRESENT ILLNESS: The patient is a very pleasant 61-year-old female, very well-known to me, who over the last 48 hours has just not been feeling well, some enteritis. The patient has been recuperating over at [facility] facility due to humerus fracture. She is a brittle type 1 diabetic. She reports over the last couple days they have held her insulin because of her nausea and vomiting and not eating well. The patient reports a very mild generalized abdominal pain. No fevers. No chills. No shortness of breath now. Some occasional cough, which is not new to her. Prior to this, had been having kind of erratic blood sugars over the last couple of weeks. PAST MEDICAL HISTORY: 1. Coronary artery disease. 2. Peripheral vascular disease, status post fem-pop bypass. 3. Poorly controlled type 1 diabetes, type 2 brittle. 4. Humerus fracture on the right. 5. Tibial fracture history. 6. 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 7. SVT history. 8. History of DVT. 9. Depression. 10.Hypertension. 11.Hyperlipidemia. 12.History of urinary retention. 13.COPD. MEDICATIONS: Please see list for full details. [facility] the [facility], it includes: 1. Lortab. 2. Lyrica. 3. NovoLog. 4. Protonix. 5. Restasis. 6. Trazodone. 7. Simethicone. 8. Wellbutrin. 9. Zebeta. FAMILY HISTORY: Significant for pancreatic and colon cancer. SOCIAL HISTORY: Previously had been living at home on her own. Now, currently at [facility] facility recuperating. Nonsmoking. . REVIEW OF SYSTEMS: As per HPI, otherwise, completely reviewed and negative. PHYSICAL EXAMINATION: VITAL SIGNS: Blood pressure 143/81, pulse 99, ADMIT: 12/05/2016 RM/LOC: 405 [facility] MR#: [id number] [address] [address] [place] [address] History and Physical SEX: F AGE: 61 : 1955 respiratory rate 20, O2 saturation 97% on room air, afebrile. GENERAL: She is alert and oriented x3, in no acute distress, very pleasant as always. HEENT: Normocephalic, atraumatic. Pupils are equal, round, and reactive to light and accommodation. Extraocular muscles intact. Dry mucous membranes. NECK: No lymphadenopathy. Tracheostomy at midline. LUNGS: Clear to auscultation bilaterally. No wheezes, rales, or rhonchi. HEART: Regular rate and rhythm. No murmurs, rubs, or gallops. ABDOMEN: Soft, nontender, nondistended. Bowel sounds present. EXTREMITIES: No cyanosis, clubbing, or edema. MUSCULOSKELETAL: 5/5 strength in all 4 extremities, repositions herself in bed reasonably well. LABORATORY AND X-RAY DATA: Her initial glucose is greater than 600. PH on ABG is 7.29, pCO2 is 28, PO2 is 99. Creatinine 1.2, BUN is 20, alk phos 142, hemoglobin 12.6, sodium 133, carbon dioxide 16, AST 18. Lipase is normal. ALT normal. Bilirubin normal. ASSESSMENT: 1. Diabetic ketoacidosis. 2. Brittle type 1 diabetes. 3. Enteritis. 4. Tracheostomy dependence. 5. Coronary artery disease. 6. Peripheral vascular disease. 7. Recent humerus fracture. PLAN: At this point in time, we will put her on the insulin drip, she is already started on a large IV fluid resuscitation, 2 L in the ER and will continue with IV fluid resuscitation. We will watch her labs closely. Next lab being in 2 hours. We will try to treat her nausea and keep her from vomiting due to her tracheostomy and concern for aspiration. Aspiration precautions. The patient is agreeable to plan. Jeffy Bernard MD/ dilan JOB #: [id number] CC: Jeffy Bernard, Attending Physician Jeffy Bernard, Family Physician
[2016-12-08] MEDS ORDERED: GLUCAGON HCL1 MG IM (15:21)
[2016-12-08] MEDS ORDERED: DESYREL-DPS50 MG PO (15:21)
--- NOTE | 2016-12-09 08:20 | ER ---
ADMIT: 12/05/2016 RM/LOC: ER [facility] MR#: [id number] [address] [address] HAYLIE RAWLS Neymar [address] [place] [id number] Emergency Room Report SEX: F AGE: 61 : 1955 DATE: 12/05/2016 CHIEF COMPLAINT: Nausea, vomiting, not taking her medications. HISTORY OF PRESENT ILLNESS: The patient is a 61-year-old female, who is currently living in a half-way, has a diagnosis of insulin-dependent diabetes and a trach from previous respiratory failure. She presents to the ER for a couple of days of nausea, began vomiting recently and has not been able to take her pills and apparently from my understanding, has not getting her insulin because she has not been eating in the last couple of days. The patient states she has some mild abdominal discomfort. Otherwise, is not having any pain other than some chronic pain in her right upper arm from a humeral stress fracture. She denies any shortness of breath. She is currently nauseous. Denies any change in bowel or bladder function other than she is urinating more frequently. REVIEW OF SYSTEMS: Ten-point review of systems is done and otherwise negative except as in HPI. PAST MEDICAL HISTORY: Significant for type 1 diabetes, for which she takes insulin; coronary artery disease; hypertension; peripheral vascular disease; DVT; COPD; SVT; high cholesterol; stress fracture, right humerus. PAST SURGICAL HISTORY: She has had a tracheostomy. MEDICATIONS: See nurse's note. ALLERGIES: SEE NURSE'S NOTE. SOCIAL HISTORY: The patient does not smoke, drink, or use drugs. PHYSICAL EXAMINATION: VITAL SIGNS: Blood pressure 150/69, pulse 98, respirations 18, temp 96.9, sats 97% on room air. HEENT: Head is atraumatic. Pupils are equal, round, reactive to light. The patient does have a trach in place, is moving air without difficulty. HEART: Regular rate and rhythm. LUNGS: Clear to auscultation. ABDOMEN: Soft, diffusely tender throughout. She does have active bowel sounds. She does have a right upper arm in a sling. She has good movement in 3 other extremities. Sensation is intact in all 4 extremities. SKIN: Warm and dry. She has no pedal edema. LABORATORY DATA: CBC is normal. Chemistries show sodium 133, potassium 4.3, carbon dioxide 16, glucose 646, creatinine 1.2. Lipase 53. Anion gap from lab is 26, calculated gap is 22, serum ketones are moderate. ABG shows a pH 7.29, pCO2 of 28, PO2 of 99. EMERGENCY DEPARTMENT COURSE: The patient presented. Had some difficulty getting history from her due to her trach and she is not able to verbalize and ADMIT: 12/05/2016 RM/LOC: [facility] MR#: [id number] [address] [place] [id number] HAYLIE RAWLS [address] [place] [address] Emergency Room Report SEX: F AGE: 61 : 1955 speak well. Did come to find out that she was likely not getting her insulin because she had not been eating much. She did not initially present like she would likely be a DKA, but blood sugar came back elevated at 646 and then added on the labs to determine if she was in DKA. Serum ketones were positive and she had an elevated anion gap. She received 2 L of normal saline while in the emergency department in addition to Zofran for nausea, followed by Reglan for some continued nausea. She was given 10 units of subcu insulin and I spoke to Dr. Griffin, who will be admitting the patient for DKA management. The patient is admitted in serious condition. DIAGNOSES: 1. Diabetic ketoacidosis. 2. Nausea and vomiting. Alessio Vogel MD/ dilan JOB #: [id number] CC: Alessio Vogel MD, Attending Physician
--- NOTE | 2016-12-10 12:00 | DS ---
ADMIT: 12/05/2016 RM/LOC: 405 [facility] MR#: [id number] [address] [address] [place] [address] Discharge Summary SEX: F AGE: 61 : 1955 ADMISSION DATE: 12/05/2016 DISCHARGE DATE: 12/07/2016 CONSULTATIONS: None. PROCEDURES: None. FINAL DIAGNOSES: 1. DKA (diabetic ketoacidosis). 2. Type 1 diabetes with erratic control. 3. Coronary artery disease. 4. Peripheral vascular disease. 5. Recent right humerus fracture. 6. History of DVT (deep venous thrombosis). 7. History of femoral-popliteal bypass. REASON FOR ADMISSION: The patient is a very pleasant 61-year-old female, who was residing over at longterm facility. Had had some vomiting. She reports her insulin had been held. Started to feel worse. Presented to the emergency room. Found to be in DKA. HOSPITAL COURSE: The patient was admitted. Placed on insulin drip. Large volume IV fluid resuscitation. Slowly and steadily she started to improve. Able to stop off insulin drip. Start her home regimen essentially. Tolerated diet well. She felt safe and stable for discharge back to [facility] where she is receiving rehab for her right humerus fracture. DISCHARGE INSTRUCTIONS: Please see discharge MAR, which I reviewed. She will see me within the next month as previously planned. They will fax over her glucose log at the end of the week for me to review it. Jeffy Bernard MD/ ashtyn JOB #: [id number] CC: Jeffy Bernard MD, Attending Physician Jeffy Bernard MD, Family Physician
[2017-02-20] MEDS ORDERED: XANAX DPS0.25 MG PO (09:25)
[2017-02-20] MEDS ORDERED: PRILOSEC DPS20 MG PO (09:26)
[2017-02-20] MEDS ORDERED: LASIX DPS20 MG PO (09:26)
[2017-02-20] MEDS ORDERED: AUGMENTIN 500-1 EACH PO (09:27)
[2017-04-06] MEDS ORDERED: LOVENOX DP60 MG/0.6 SQ (13:28)
[2017-04-06] MEDS ORDERED: NOVOLIN R100 UNIT/1 IV (13:34)
[2017-04-06] MEDS ORDERED: LOPRESSOR I5 MG/5 ML IV (13:34)
[2017-04-06] MEDS ORDERED: TYLENOL DPS325 MG PO (13:35)
[2017-04-06] MEDS ORDERED: GLUTOSE 1537.5 GM PO (13:35)
[2017-04-06] MEDS ORDERED: GLUCAGON HCL1 MG IM (13:36)
[2017-04-06] MEDS ORDERED: NITROSTAT0.4 MG SL (14:18)
[2017-04-06] MEDS ORDERED: REGLAN10 MG IV (14:20)
[2017-04-06] MEDS ORDERED: ZOFRAN DPS4 MG/2 ML IV (14:20)
== END 2016-12-07 12:53 | DRG 639 ==
LOC: ER 03:10 → 4PCU 06:22
PROVIDERS: ADMIT Internal Medicine
DX: E10.10 Type 1 diabetes mellitus with ketoacidosis without coma (principal); Z93.0 Tracheostomy status; E10.51 Type 1 diabetes mellitus with diabetic peripheral angiopathy without gangrene; S42.201D Unspecified fracture of upper end of right humerus, subsequent encounter for fracture with routine healing; W18.30XD Fall on same level, unspecified, subsequent encounter; I25.10 Atherosclerotic heart disease of native coronary artery without angina pectoris; K52.9 Noninfective gastroenteritis and colitis, unspecified; J44.9 Chronic obstructive pulmonary disease, unspecified; F32.9 Major depressive disorder, single episode, unspecified; I10 Essential (primary) hypertension; E78.5 Hyperlipidemia, unspecified; Z86.718 Personal history of other venous thrombosis and embolism

== ENCOUNTER → 2016-12-18 | Outpatient (CLI) | payer MEDICARE, MEDICAID ==
[~2016-12-18] MED LIST changes: +AUGMENTIN 500-1 EACH PO; +GLUCAGON HCL1 MG IM; +LOPRESSOR I5 MG/5 ML IV; +LOVENOX DP60 MG/0.6 SQ; +NITROSTAT0.4 MG SL; +NOVOLIN R100 UNIT/1 IV; +REGLAN10 MG IV; +ZOFRAN DPS4 MG/2 ML IV
== END | disposition home or self-care (01) ==
LOC: RAD.S 16:00
DX: S42.201G Unspecified fracture of upper end of right humerus, subsequent encounter for fracture with delayed healing (principal); S42.211G Unspecified displaced fracture of surgical neck of right humerus, subsequent encounter for fracture with delayed healing

== ENCOUNTER 2016-12-28 17:42 | Emergency (ER) | payer MEDICARE, MEDICAID ==
[~2016-12-28 17:42] MED LIST changes: -AUGMENTIN 500-1 EACH PO; -LOPRESSOR I5 MG/5 ML IV; -LOVENOX DP60 MG/0.6 SQ; -NITROSTAT0.4 MG SL; -NOVOLIN R100 UNIT/1 IV; -REGLAN10 MG IV; -ZOFRAN DPS4 MG/2 ML IV
--- NOTE | 2016-12-29 08:16 | ER ---
ADMIT: 12/28/2016 RM/LOC: ER [facility] MR#: [id number] [address] [address] [place] [address] Emergency Room Report SEX: F AGE: 61 : 1955 DATE: 12/28/2016 ADDENDUM: A 61-year-old white female coming in by ambulance with insulin reaction. I think she has had problems with her diabetes before. However, she responded to the insulin out in the field we fed her. She screens positive on the sepsis screen because of her tachycardia. We will go ahead and run the initial. If this is all negative, she will go home. I expect this to all be negative. Any other changes will be dictated and then she will be discharged after labs. John Saab MD/ hernestol JOB #: [id number] CC: John Saab MD, Attending Physician Jeffy Bernard MD, Family Physician
[2017-02-20] MEDS ORDERED: XANAX DPS0.25 MG PO (09:25)
[2017-02-20] MEDS ORDERED: LASIX DPS20 MG PO (09:26)
[2017-02-20] MEDS ORDERED: PRILOSEC DPS20 MG PO (09:26)
[2017-02-20] MEDS ORDERED: AUGMENTIN 500-1 EACH PO (09:27)
[2017-04-06] MEDS ORDERED: LOVENOX DP60 MG/0.6 SQ (13:28)
[2017-04-06] MEDS ORDERED: NOVOLIN R100 UNIT/1 IV (13:34)
[2017-04-06] MEDS ORDERED: LOPRESSOR I5 MG/5 ML IV (13:34)
[2017-04-06] MEDS ORDERED: GLUTOSE 1537.5 GM PO (13:35)
[2017-04-06] MEDS ORDERED: TYLENOL DPS325 MG PO (13:35)
[2017-04-06] MEDS ORDERED: GLUCAGON HCL1 MG IM (13:36)
[2017-04-06] MEDS ORDERED: NITROSTAT0.4 MG SL (14:18)
[2017-04-06] MEDS ORDERED: REGLAN10 MG IV (14:20)
[2017-04-06] MEDS ORDERED: ZOFRAN DPS4 MG/2 ML IV (14:20)
== END 2016-12-28 19:30 | disposition home or self-care (01) ==
LOC: ER 17:42
DX: E10.641 Type 1 diabetes mellitus with hypoglycemia with coma (principal); R41.0 Disorientation, unspecified; I10 Essential (primary) hypertension; E78.5 Hyperlipidemia, unspecified; J44.9 Chronic obstructive pulmonary disease, unspecified; I25.10 Atherosclerotic heart disease of native coronary artery without angina pectoris; I25.2 Old myocardial infarction; I73.9 Peripheral vascular disease, unspecified; Z86.718 Personal history of other venous thrombosis and embolism; Z88.8 Allergy status to other drugs, medicaments and biological substances; Z93.0 Tracheostomy status; Z79.82 Long term (current) use of aspirin; Z79.4 Long term (current) use of insulin
CPT/HCPCS: 26